=== PATIENT | male | born 1985 | race Caucasian/White ===

== ENCOUNTER 2017-09-30 21:53 | Emergency (ER) | payer BC ==
[2017-09-30] MEDS ORDERED: Ketorolac 60 MG/2 ML SDV IM ONE (22:17)
[2017-09-30] MEDS ORDERED: Acetaminophen/HYDROcodone 325-5 MG Tab PO ONE (22:21)
--- NOTE | 2017-09-30 22:23 | EDM.PDOC ---
ED HPI GENERAL MEDICAL PROBLEM - General Chief Complaint: Back Pain or Injury Stated Complaint: BACK PAIN Time Seen by Provider: 09/30/17 22:04 Source of Information: Reports: Patient, Family History Limitations: Reports: No Limitations - History of Present Illness INITIAL COMMENTS - FREE TEXT/NARRATIVE: 31 y.o.w.m came to the ed with his SO due to acute lower back pain radiating to his right lower leg down to his toes. Pt stated he was dx'd with a "slipped disk , level?). No stool and urine incontinence. Pt was bending over while walking to the ed. 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 Right Lower Back Pain Score (Numeric/FACES): 10 - Related Data Allergies Allergy/AdvReac Type Severity Reaction Status Date / Time No Known Allergies Allergy Verified 09/30/17 22:03 Home Meds: Home Meds Amoxicillin/Potassium Clav [Augmentin 875-125 Tablet] 1 tab PO ASDIRECTED [History] Past Medical History HEENT History: Reports: Sinusitis Musculoskeletal History: Reports: Back Pain, Chronic - Infectious Disease History Infectious Disease History: Reports: Chicken Pox Social & Family History - Family History Family Medical History: Noncontributory - Tobacco Use Smoking Status *Q: Current Every Day Smoker Years of Tobacco use: 5 Packs/Tins Daily: 0.5 Used Tobacco, but Quit: Yes Month Tobacco Last Used: October Second Hand Smoke Exposure: No - Caffeine Use Caffeine Use: Reports: Coffee - Recreational Drug Use Recreational Drug Use: No ED ROS GENERAL - Review of Systems Review Of Systems: See Below Constitutional: Reports: No Symptoms HEENT: Reports: No Symptoms Respiratory: Reports: No Symptoms Cardiovascular: Reports: No Symptoms Endocrine: Reports: No Symptoms GI/Abdominal: Reports: No Symptoms : Reports: No Symptoms Musculoskeletal: Reports: Back Pain Skin: Reports: No Symptoms Neurological: Reports: No Symptoms Psychiatric: Reports: No Symptoms Hematologic/Lymphatic: Reports: No Symptoms Immunologic: Reports: No Symptoms ED EXAM,LOWER BACK PAIN/INJURY - Physical Exam Exam: See Below Exam Limited By: No Limitations General Appearance: Alert, WD/WN, Mild Distress Eye Exam: Bilateral Eye: Normal Inspection Ears: Normal External Exam Nose: Normal Inspection Throat/Mouth: Normal Inspection, Normal Lips Head: Atraumatic, Normocephalic Neck: Normal Inspection, Supple, Non-Tender, Full Range of Motion Respiratory/Chest: No Respiratory Distress, Lungs Clear, Normal Breath Sounds Cardiovascular: Normal Peripheral Pulses, Regular Rate, Rhythm GI/Abdominal: Normal Bowel Sounds, Soft, Non-Tender, No Organomegaly (Male) Exam: No Hernia, Normal Inspection Rectal (Males) Exam: Deferred (no stool or urine incontinence ) Back Exam: Normal Inspection Extremities: Limited Range of Motion (r leg. Straight leg rising 45 degree r leg 90 degree left leg) Neurological: Alert, Normal Mood/Affect, Normal Dorsiflexion, CN II-XII Intact, Straight Leg Raise (L) (90 degraa ), Straight Leg Raise (R) (45 degree) Psychiatric: Normal Affect, Normal Mood Skin Exam: Warm, Dry, Intact, Normal Color, No Rash Lymphatic: No Adenopathy Course - Vital Signs Text/Narrative:: 31 y.o.w.m came to the ed with his SO due to acute lower back pain radiating to his right lower leg down to his toes. Pt stated he was dx'd with a "slipped disk , level?). No stool and urine incontinence. Pt was bending over while walking to the ed. pt was seeing a chiropractor BP 107/54 Pulse 71 RR 17 Pulse ox 98% on RA Temp 36.9 PE: Positive right Straight leg risng test, tender r lower back. Imaging/labs not indicated Impression: Positive right Straight leg risng test, tender r lower back Tx: Toradol Reexam: improved, nl gate on D/C Plan: D/C with instructions Last Recorded V/S: Last Vital Signs Temp 37.1 C 09/30/17 22:04 Pulse 80 09/30/17 22:04 Resp 16 09/30/17 22:04 BP 107/54 L 09/30/17 22:04 Pulse Ox 100 09/30/17 22:04 - Orders/Labs/Meds Orders: Active Orders 24 hr Category Date Time Status Cooling Warming Measures [RC] ASDIRECTED Care 09/30/17 22:17 Active Ice Pack [Ice Therapy] [OM.PC] Routine Oth 09/30/17 22:17 Ordered Meds: Medications Discontinued Medications Generic Name Dose Route Start Last Admin Trade Name Isidro PRN Reason Stop Dose Admin Ketorolac Tromethamine 60 mg 09/30/17 22:17 09/30/17 22:23 Toradol IM 09/30/17 22:18 60 mg ONETIME ONE Administration Departure - Departure Time of Disposition: 22:18 Disposition: Home, Self-Care 01 Condition: Good Clinical Impression: Low back pain Qualifiers: Chronicity: unspecified Back pain laterality: right Sciatica presence: with sciatica Sciatica laterality: sciatica of right side Qualified Code(s): M54.41 - Lumbago with sciatica, right side - Discharge Information Instructions: Back Pain, Adult, [id number], Pain Medicine Instructions, Easy- to-Read Referrals: Venu Chin MD [Primary Care Provider] - Forms: ED Department Discharge Additional Instructions: Please take Motrin daily, please apply ICE to the affected area, Vicodin for severe pain only, please f/u with a instructional specialist a.s.a.p. Please come back if your symptoms get worse acutely. - My Orders Last 24 Hours: My Active Orders 09/30/17 22:17 Cooling Warming Measures [RC] ASDIRECTED Ice Pack [Ice Therapy] [OM.PC] Routine - Assessment/Plan Last 24 Hours: My Active Orders 09/30/17 22:17 Cooling Warming Measures [RC] ASDIRECTED Ice Pack [Ice Therapy] [OM.PC] Routine
== END 2017-09-30 22:30 | disposition home or self-care (01) ==
LOC: FB.ED 21:53
DX: M54.41 Lumbago with sciatica, right side (principal); F17.210 Nicotine dependence, cigarettes, uncomplicated
CPT/HCPCS: 96372; 99283; J1885; A9270-GY

== ENCOUNTER 2024-09-14 13:27 | Emergency (ER) | payer BC ==
[2024-09-14 14:01] LABS: HEMOGLOBIN 15.1 g/dL (12.9-17.7); MEAN CORPUSCULAR HGB CONC 34.2 g/dL (28.7-35.3); MEAN CORPUSCULAR VOLUME 87.8 fL (80.8-98.7); RED BLOOD CELL COUNT 5.02 x10(6)uL (3.90-5.90); RED CELL DISTRIBUTION WIDTH 13.4 % (12.4-15.0); WHITE BLOOD CELL COUNT,WBC 4.8 x10-3/uL (3.2-10.1)
[2024-09-14] MEDS: Morphine 4 MG/ML VIAL IVPUSH ONE (14:02)
[2024-09-14 14:08] LABS: BLOOD UREA NITROGEN,BUN 14 mg/dL (7-18); CALCIUM 9.1 mg/dL (8.6-10.2); CARBON DIOXIDE,CO2 26 mmol/L (21-32); CHLORIDE,CL 107 mmol/L (100-110); EST CRCL DRUG DOSING (CG) 102.12 mL/min; ESTIMATED GFR 100 mL/min (>60); GLUCOSE RANDOM 101 mg/dL (80-116); POTASSIUM,K 3.9 mmol/L (3.5-5.3); SODIUM,NA 141 mmol/L (135-145)
[2024-09-14 14:14] LABS: ALANINE AMINOTRANSFERASE,ALT 93 U/L (12-36); ALBUMIN 3.7 g/dL (3.5-5.2); ALKALINE PHOSPHATASE 107 IU/L (56-112); ASPARTATE AMNIOTRANSFERASE,AST 33 IU/L (5-25); BILIRUBIN TOTAL 0.4 mg/dL (0.1-1.3); PROTEIN TOTAL,TP 7.5 g/dL (6.0-8.0)
== END 2024-09-14 15:00 | disposition home or self-care (01) ==
LOC: FB.ED 13:27
DX: R51.9 Headache, unspecified (principal); Y04.8XXA Assault by other bodily force, initial encounter
CPT/HCPCS: 70450; 70486; 80053; 85027; 96374; 99283; 99284-25; J2270